=== PATIENT | female | born 1960 | race Caucasian/White ===

== ENCOUNTER 2016-09-25 10:25 | Outpatient (CLI) | payer OTHER | END 2016-09-25 10:26 | disposition home or self-care (01) | DX: E03.9 Hypothyroidism, unspecified (principal); Z98.84 Bariatric surgery status ==

== ENCOUNTER 2017-01-31 09:10 | Outpatient (CLI) | payer OTHER | END 2017-01-31 09:11 | disposition critical access hospital (66) | LOC: EMS 09:10 | PROVIDERS: ATTEND Surgery | DX: R07.9 Chest pain, unspecified (principal) | CPT/HCPCS: A0425; A0427 ==

== ENCOUNTER 2017-01-31 09:28 | Emergency (ER) | payer OTHER ==
--- NOTE | 2017-01-31 09:51 | ED Physician Documentation ---
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 No: General Weakness, Palpitations, Cough Similar symptoms before: No diagnosis (had similar less severe symptoms undulating for a few hours about 2-3 days ago, nonexertional and then went away. ) Recently seen: Not recently seen Review of Systems Constitutional: denies: Fever, Chills Nose: denies: Rhinorrhea / runny nose, Congestion Throat: denies: Sore throat Cardiac: denies: Palpitations, Pedal edema, Calf pain Respiratory: denies: Dyspnea, Cough GI: reports: Nausea. denies: Abdominal Pain, Vomiting, Diarrhea : denies: Dysuria, Frequency Skin: denies: Rash, Lesions Musculoskeletal: denies: Neck pain, Back pain Neurologic: denies: Focal weakness, Numbness, Near syncope Psychiatric: denies: Depressed, Anxiety Immunocompromised: denies: Immunocompromised PD PAST MEDICAL HISTORY - Past Medical History Cardiovascular: Hypertension (but is better after losing weight) Respiratory: None Neuro: None Endocrine/Autoimmune: None - Present Medications Home Medications: Ambulatory Orders Medication Instructions Recorded Confirmed Gabapentin 01/31/17 Levothyroxine [Synthroid] 112 mcg PO DAILY 01/31/17 01/31/17 Sertraline [Zoloft] 50 mg PO DAILY 01/31/17 01/31/17 - Allergies Allergies/Adverse Reactions: Allergies Allergy/AdvReac Type Severity Reaction Status Date / Time amoxicillin Allergy Hives Verified 01/31/17 09:42 - Living Situation Living Situation: reports: With spouse/s.o. Living Arrangement: reports: At home - Social History Does the pt smoke?: No Does the pt have substance abuse?: No - Family History Family history: reports: CAD (father has pacemaker and brother with irregular heart beats). denies: Sudden , Venous thromboembolism PD ED PE NORMAL - Vitals Vital signs reviewed: Yes - General General: Alert and oriented X 3, No acute distress, Well developed/nourished - HEENT HEENT: Moist mucous membranes, Pharynx benign - Neck Neck: Supple, no meningeal sign, No adenopathy, No JVD, No bruit - Cardiac Cardiac: RRR, No gallop, No rub, Other (2/6 murmur left chest without radiation to neck. PMI slightly lateral. ) - Respiratory Respiratory: Clear bilaterally, Other (very slight chestwall tenderness left chest, without really reproducing her symptoms. ) - Abdomen Abdomen: Soft, Non tender - Female Female : Deferred - Rectal Rectal: Deferred - Back Back: No CVA TTP - Derm Derm: Normal color - Extremities Extremities: No deformity, No tenderness to palpate, Normal ROM s pain, No edema , No calf tenderness / cord - Neuro Neuro: Alert and oriented X 3, No motor deficit, Normal speech - Psych Psych: Normal mood, Normal affect Results - Vitals Vitals: Vital Signs - 24 hr 01/31/17 01/31/17 01/31/17 09:34 09:51 10:51 Temperature 36.2 C L Heart Rate 73 52 L Respiratory 20 11 L Rate Blood Pressure 138/90 H 132/69 H Blood Pressure 138/90 H [Left] Blood Pressure 153/75 H [Right] O2 Saturation 100 100 01/31/17 01/31/17 01/31/17 11:09 12:06 12:13 Temperature Heart Rate 58 L 54 L 55 L Respiratory 16 10 L Rate Blood Pressure 131/73 H 125/66 125/66 Blood Pressure [Left] Blood Pressure [Right] O2 Saturation 96 99 99 Oxygen O2 Source Room air - EKG (time done) 09:41 Rate: Rate (enter#) (90) Rhythm: NSR [place]: Normal Intervals: Normal [place] QRS: Normal Ischemia: Normal ST segments. No: ST elevation c/w ischemia, ST depression Compare to prior EKG: Old EKG unavailable - Labs Labs: Laboratory Tests 01/31/17 01/31/17 01/31/17 10:30 10:30 10:30 WBC 6.4 RBC 4.45 Hgb 12.7 Hct 38.4 MCV 86.2 MCH 28.6 MCHC 33.1 RDW 13.3 Plt Count 229 MPV 7.6 L Neut # 4.5 Lymph # 1.2 L Mckean # 0.5 Eos # 0.2 Baso # 0.0 Absolute Nucleated RBC 0.00 Nucleated RBCs 0.0 Sodium 140 Potassium 3.9 Chloride 107 Carbon Dioxide 25 Anion Gap 8.0 BUN 10 Creatinine 0.6 Estimated GFR (MDRD) 103 Glucose 99 Calcium 9.0 Magnesium 2.0 Total Bilirubin 0.7 AST 25 ALT 13 Alkaline Phosphatase 40 L Troponin I 1.28 H* Total Protein 6.9 Albumin 3.7 Globulin 3.2 Albumin/Globulin Ratio 1.2 Lipase 30 01/31/17 11:55 WBC RBC Hgb Hct MCV MCH MCHC RDW Plt Count MPV Neut # Lymph # Mckean # Eos # Baso # Absolute Nucleated RBC Nucleated RBCs Sodium Potassium Chloride Carbon Dioxide Anion Gap BUN Creatinine Estimated GFR (MDRD) Glucose Calcium Magnesium Total Bilirubin AST ALT Alkaline Phosphatase Troponin I 2.44 H* Total Protein Albumin Globulin Albumin/Globulin Ratio Lipase PD MEDICAL DECISION MAKING - ED course Complexity details: reviewed results (Elevated troponin with non-ST ECG. ), re- evaluated patient (pain minimal initially, but did increase some here. Given NTG and Morphine, with some subsequent nausea. Repeat ECG without ST elevations still, but RBBB is resolved. Talked with Cardiology, Dr. Villasenor, who refers to Hospitalist. ), considered differential (concerning for acute ME, ACS, lung related. Will get ECG, CXR, troponin and basic labs. ), d/w patient, d/w transportation consultant ([facility], Cardiology. ) Departure - Departure Disposition: 02 Transfer Acute Care Hosp Clinical Impression: Chest pain Qualifiers: Chest pain type: precordial pain Qualified Code(s): R07.2 - Precordial pain Myocardial infarction Qualifiers: Myocardial infarction ST status: non-ST elevation myocardial infarction Qualified Code(s): I21.4 - Non-ST elevation (NSTEMI) myocardial infarction Condition: Stable Record reviewed to determine appropriate education?: Yes
[2017-01-31] MEDS ORDERED: MAG HYDROX/AL HYDROX/SIMETH 30 ML UDC PO STA (10:16)
[2017-01-31] MEDS ORDERED: MAGNESIUM HYDROXIDE 2,400 MG/30 ML UDC ONE (10:29)
[2017-01-31] MEDS ORDERED: NITROGLYCERIN SL 0.4 MG TABLET SL ONE (10:29)
[2017-01-31] MEDS: NITROGLYCERIN SL 0.4 MG TABLET SL STA ×2 (10:31→10:57)
[2017-01-31 10:37] LABS: BASOPHILS % (AUTO) 0.8 %; EOSINOPHILS # (AUTO) 0.2 10^3/uL (0.0-0.7); EOSINOPHILS % (AUTO) 2.5 %; HCT - HEMATOCRIT 38.4 % (37.0-47.0); HGB - HEMOGLOBIN 12.7 g/dL (12.0-16.0); LYMPHOCYTES # (AUTO) 1.2 10^3/uL (1.5-3.5); LYMPHOCYTES % (AUTO) 19.1 %; MEAN CORPUSCULAR HEMOGLOBIN 28.6 pg (27.0-31.0); MEAN CORPUSCULAR HGB CONC 33.1 g/dL (32.0-36.0); MEAN CORPUSCULAR VOLUME 86.2 fL (81.0-99.0); MEAN PLATELET VOLUME 7.6 fL (7.9-10.8); MONOCYTES # (AUTO) 0.5 10^3/uL (0.0-1.0); MONOCYTES % (AUTO) 7.6 %; NEUTROPHILS # (AUTO) 4.5 10^3/uL (1.5-6.6); RED BLOOD COUNT 4.45 10^6/uL (4.20-5.40); RED CELL DISTRIBUTION WIDTH 13.3 % (12.0-15.0); UNCORRECTED WHITE BLOOD COUNT 6.4 x10^3/uL; WHITE BLOOD COUNT 6.4 x10^3/uL (4.8-10.8)
[2017-01-31 10:50] LABS: ALBUMIN/GLOBULIN RATIO 1.2 (1.0-2.2); BILIRUBIN,TOTAL 0.7 mg/dL (0.2-1.0); CREATININE 0.6 mg/dL (0.4-1.0); POTASSIUM 3.9 mmol/L (3.5-5.0); TOTAL PROTEIN 6.9 g/dL (6.7-8.2)
[2017-01-31] MEDS ORDERED: MORPHINE 2 MG/ML SYRINGE IVP STA ×2 (11:11→12:13)
[2017-01-31] MEDS ORDERED: MORPHINE 2 MG/ML SYRINGE ONE ×2 (11:17→12:20)
--- NOTE | 2017-01-31 11:23 | XRAY Preliminary Report ---
Exam: XR Chest 2 View PA/LAT Impression: Atherosclerosis of the aorta. No evidence of a mass or infiltrate. [facility] SITE ID: [id number]
--- NOTE | 2017-01-31 11:25 | XRAY Report ---
EXAM: CHEST RADIOGRAPHY EXAM DATE: 01/31/2017 10:46 AM. CLINICAL HISTORY: Chest pain since 8:30. COMPARISON: None. TECHNIQUE: 2 views. FINDINGS: There is atherosclerosis of the aorta. The heart is enlarged. There is no pulmonary mass, infiltrate, pleural effusion or pneumothorax seen. Impression: Atherosclerosis of the aorta. No evidence of a mass or infiltrate. [facility] Referring Provider Line: [phone] SITE ID: [id number]
[2017-01-31] MEDS ORDERED: ENOXAPARIN 80 MG/0.8 ML SYRINGE SUBQ STA (11:45)
[2017-01-31] MEDS ORDERED: CLOPIDOGREL 300 MG TABLET PO STA (11:46)
[2017-01-31] MEDS ORDERED: CLOPIDOGREL 300 MG TABLET PO ONE (11:59)
[2017-01-31] MEDS ORDERED: ENOXAPARIN 80 MG/0.8 ML SYRINGE SUBQ ONE (11:59)
[2017-01-31] MEDS ORDERED: NITROGLYCERIN SL 0.4 MG TABLET SL STA (12:13)
[2017-01-31] MEDS ORDERED: ONDANSETRON 4 MG/2 ML VIAL IVP STA (12:24)
[2017-01-31] MEDS ORDERED: ACETAMINOPHEN 325 MG TABLET PO STA (12:24)
[2017-01-31] MEDS ORDERED: SODIUM CHLORIDE 0.9% 500 ML IV ONE (12:24)
[2017-01-31] MEDS ORDERED: ONDANSETRON 4 MG/2 ML VIAL ONE (12:31)
[2017-01-31] MEDS ORDERED: ACETAMINOPHEN 325 MG TABLET PO ONE (13:01)
[2017-01-31 14:05] VITALS: BP 112/61
== END 2017-01-31 14:09 | disposition short-term general hospital (02) ==
LOC: EDUNIT# → ED 09:28
DX: I21.4 Non-ST elevation (NSTEMI) myocardial infarction (principal); R07.9 Chest pain, unspecified; I45.10 Unspecified right bundle-branch block; R94.31 Abnormal electrocardiogram [ECG] [EKG]; I10 Essential (primary) hypertension
CPT/HCPCS: 36415; 71020; 80053; 83690; 83735; 84484; 85025; 93005; 96361; 96372; 96374; 96375; 96376; 99285; A9270; J1650

== ENCOUNTER 2017-01-31 14:12 | Outpatient (CLI) | payer OTHER | END 2017-01-31 14:13 | disposition short-term general hospital (02) | LOC: EMS 14:12 | PROVIDERS: ATTEND Surgery | DX: I21.3 ST elevation (STEMI) myocardial infarction of unspecified site (principal) | CPT/HCPCS: A0425; A0426 ==

== ENCOUNTER 2023-04-04 10:49 | Outpatient (CLI) | payer OTHER | END 2023-04-04 10:50 | disposition critical access hospital (66) | LOC: EMS 10:49 | DX: R42 Dizziness and giddiness (principal); R63.8 Other symptoms and signs concerning food and fluid intake; R00.1 Bradycardia, unspecified | CPT/HCPCS: A0425; A0427 ==

== ENCOUNTER 2023-04-04 11:08 | Emergency (ER) | payer OTHER ==
[2023-04-04 11:41] LABS: BASOPHILS # (AUTO) 0.1 10^3/uL (0.0-0.1); BASOPHILS % (AUTO) 0.9 %; EOSINOPHILS # (AUTO) 0.3 10^3/uL (0.0-0.7); EOSINOPHILS % (AUTO) 4.1 %; HCT - HEMATOCRIT 35.5 % (37.0-47.0); LYMPHOCYTES # (AUTO) 2.3 10^3/uL (1.5-3.5); LYMPHOCYTES % (AUTO) 35.3 %; MEAN CORPUSCULAR HEMOGLOBIN 26.8 pg (27.0-31.0); MEAN CORPUSCULAR VOLUME 86.4 fL (81.0-99.0); MONOCYTES # (AUTO) 0.5 10^3/uL (0.0-1.0); MONOCYTES % (AUTO) 8.2 %; NEUTROPHILS # (AUTO) 3.4 10^3/uL (1.5-6.6); NEUTROPHILS % (AUTO) 51.3 %; PLT - PLATELET COUNT 154 10^3/uL (130-450); RED BLOOD COUNT 4.11 10^6/uL (4.20-5.40); RED CELL DISTRIBUTION WIDTH 14.8 % (12.0-15.0); WHITE BLOOD COUNT 6.6 x10^3/uL (4.8-10.8)
[2023-04-04 11:49] LABS: ALBUMIN 3.8 g/dL (3.2-5.5); ALBUMIN/GLOBULIN RATIO 1.4 (1.0-2.2); ALKALINE PHOSPHATASE 41 IU/L (42-121); ALT ALANINE AMINOTRANSFERASE 11 IU/L (10-60); AST ASPARTATE AMINOTRANSFERASE 19 IU/L (10-42); BILIRUBIN,TOTAL 0.3 mg/dL (0.2-1.0); BUN - BLOOD UREA NITROGEN 13 mg/dL (6-20); CALCIUM 9.1 mg/dL (8.5-10.3); CARBON DIOXIDE - CO2 29 mmol/L (21-32); CHLORIDE 107 mmol/L (101-111); ETOH - ETHANOL < 10.0 mg/dL; GFR - MDRD 56 (>89); GLUCOSE 106 mg/dL (74-104); LIPASE 35 U/L (11-82); MAGNESIUM 1.6 mg/dL (1.7-2.3); POTASSIUM 3.6 mmol/L (3.5-4.5); SODIUM 141 mmol/L (135-145); TOTAL PROTEIN 6.5 g/dL (6.4-8.9)
--- NOTE | 2023-04-04 11:50 | ED Physician Documentation ---
History of Present Illness - Stated complaint Stated Complaint: DIZZINESS - Chief complaint Chief Complaint: Neuro - Additonal information Additional information: Patient 62-year-old female presenting to the emergency department chief compla int dizziness. Reports has had intermittent episodes of dizziness ongoing for the last several years. This morning while at work had an episode that was more severe than baseline. Denies any chest pain or shortness of breath associated with her symptoms. 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 Does report that she takes blood pressure medication including metoprolol each morning along with a thyroid supplement. No recent changes in her medications. States that she follows with automotive design drafter and had an echocardiogram done within the last year. She also endorses for multiple cardiac catheterizations in the past which have been negative. Review of Systems Constitutional: denies: Fever Eyes: denies: Loss of vision Ears: denies: Loss of hearing Nose: denies: Rhinorrhea / runny nose Throat: denies: Dental pain / toothache Cardiac: denies: Chest pain / pressure Respiratory: denies: Dyspnea GI: denies: Abdominal Pain PD PAST MEDICAL HISTORY - Past Medical History Cardiovascular: Hypertension Respiratory: None Endocrine/Autoimmune: None Psych: Depression - Past Surgical History Past Surgical History: Yes General: Cholecystectomy - Present Medications Home Medications: Ambulatory Orders Medication Instructions Recorded Confirmed Gabapentin 300 mg PO QPM 01/31/17 04/04/23 Levothyroxine [Synthroid] 112 mcg PO DAILY 01/31/17 04/04/23 Sertraline [Zoloft] 100 mg PO DAILY 01/31/17 04/04/23 Cetirizine [ZyrTEC] 10 mg PO DAILY 04/04/23 04/04/23 Metoprolol Succinate [Toprol Xl] 25 mg PO DAILY 04/04/23 04/04/23 Prochlorperazine [Compazine] 5 mg PO Q6H 04/04/23 04/04/23 Sumatriptan Succinate [Imitrex] 100 mg PO DAILY PRN 04/04/23 04/04/23 Zolpidem Tartrate [Ambien Cr] 12.5 mg PO QPM PRN 04/04/23 04/04/23 buPROPion [Wellbutrin Sr] 150 mg PO DAILY 04/04/23 04/04/23 - Allergies Allergies/Adverse Reactions: Allergies Allergy/AdvReac Type Severity Reaction Status Date / Time amoxicillin Allergy Hives Verified 04/04/23 11:36 erythromycin base AdvReac Unknown Verified 04/04/23 11:36 - Social History Does the pt smoke?: No Smoking Status: Never smoker Does the pt drink ETOH?: No Does the pt have substance abuse?: No - Immunizations Immunizations are current?: Yes PD ED PE NORMAL - Vitals Vital signs reviewed: Yes (Pulse 55) - General General: Alert and oriented X 3, No acute distress, Well developed/nourished - HEENT HEENT: Atraumatic, PERRL, EOMI, Ears normal, Moist mucous membranes, Pharynx benign - Neck Neck: Supple, no meningeal sign, No bony TTP, No adenopathy, Thyroid normal, No JVD - Cardiac Cardiac: RRR, No gallop, Strong equal pulses - Respiratory Respiratory: No respiratory distress, Clear bilaterally - Abdomen Abdomen: Normal bowel sounds, Non tender, Non distended - Female Female : Deferred - Rectal Rectal: Deferred - Back Back: No CVA TTP - Derm Derm: Normal color - Extremities Extremities: No deformity, No tenderness to palpate - Neuro Neuro: Alert and oriented X 3, loom changer 2-12 intact, No motor deficit, No sensory deficit, Normal speech Results - Vitals Vitals: Vital Signs - 24 hr 04/04/23 04/04/23 04/04/23 11:12 11:57 12:58 Temperature 36.5 C Heart Rate 51 L 51 L Heart Rate [ 47 L Sitting] Heart Rate [ 54 L Standing] Heart Rate [ 46 L Supine] Respiratory 18 18 Rate Blood Pressure 129/67 129/67 Blood Pressure 150/67 H [Sitting] Blood Pressure 158/72 H [Standing] Blood Pressure 144/63 H [Supine] O2 Saturation 98 100 Oxygen O2 Source Room air - EKG (time done) 1115 EKG releavant findings:: EKG personally interpreted by author of this note. Relevant findings are: Sinus rhythm with rate 54 bpm. Normal axis. [place] normal prolonged at 213 ms. QTc and QT intervals within normal limits. No ST segment elevations. Nonspecific ST abnormalities. Infrequent premature ventricular complexes noted. - Labs Labs: Laboratory Tests 04/04/23 04/04/23 04/04/23 11:31 11:31 11:31 WBC 6.6 RBC 4.11 L Hgb 11.0 L Hct 35.5 L MCV 86.4 MCH 26.8 L MCHC 31.0 L RDW 14.8 Plt Count 154 MPV 9.0 Neut # (Auto) 3.4 Lymph # (Auto) 2.3 [place] # (Auto) 0.5 Eos # (Auto) 0.3 Baso # (Auto) 0.1 Absolute Nucleated RBC 0.00 Nucleated RBC % 0.0 Sodium 141 Potassium 3.6 Chloride 107 Carbon Dioxide 29 Anion Gap 5.0 L BUN 13 Creatinine 1.0 Estimated GFR (MDRD) 56 L Glucose 106 H Calcium 9.1 Magnesium 1.6 L Total Bilirubin 0.3 AST 19 ALT 11 Alkaline Phosphatase 41 L Troponin I High Sens 7.5 Total Protein 6.5 Albumin 3.8 Globulin 2.7 Albumin/Globulin Ratio 1.4 Lipase 35 Ethyl Alcohol < 10.0 PD Medical Decision Making - ED course Complexity details: reviewed old records, reviewed results, re-evaluated patient, considered differential, d/w patient ED course: Patient 62-year-old female presenting to the emergency department with chief complaint dizziness. Endorse for multiple similar episodes in the past. Does have past medical significant for aortic valve replacement secondary to bicuspid aortic. Denies any chest pain or shortness of breath associated with her symptoms. Does report that she ordinarily has episodes similar to this area only in the morning and she does take her blood pressure medications in the morning including metoprolol. EKG is on above demonstrated sinus bradycardia without indications of acute cardiac ischemia or dysrhythmia. The remainder of her labs were all within normal limits or nonactionable. She had normal orthostatic vital signs in the emergency department. She passed an ambulatory trial. She was monitored continuously on telemetry for several hours with no recurrent or worsening symptoms. On reevaluation she reported feeling significantly better and denied any ongoing symptoms here in the emergency department. She did report that she has had an echocardiogram done within the last year That she reports was normal. I do believe it would benefit her to discontinue her beta-allyssa at this time as I am concerned that this could be contributing to her symptoms. I will have her follow-up with her primary care doctor as well as with her automotive design drafter. She is instructed to return to the emergency department immediately for any new or worsening symptoms. Departure - Departure Forms: PCP List
--- OUTSIDE RECORDS SUMMARY | 2023-04-04 12:36 | EXTERNAL MEDICAL SUMMARY RPT | Continuity of Care Document ---
Author Name Unknown Address [address] [place] [address] Phone Organization [facility] Address [address] [place] [address] Phone Care Team Providers Care Supervisor [employer] Name Role Phone aMlou Owusu Unavailable Unavailable Allergies and Intolerances date description facility reaction severity 2023-01-30 11:34:19 [facility] (no reactio n) Severe Results/Labs test date facility value unit notes Social History date description facility 2023-01-30 00:00 Never smoked tobacco ([facility] Vital Signs date measurement value units 2023-01-30 00:00 BMI 24.8 kg/m2 2023-01-30 00:00 BP_diastolic 84 mmHg 2023-01-30 00:00 BP_systolic 132 mmHg 2023-01-30 00:00 heart_rate 57 /min 2023-01-30 00:00 height_metric 167.64 cm 2023-01-30 00:00 height_standard 66 in 2023-01-30 00:00 o2_saturation 97 % 2023-01-30 00:00 weight_metric 69.85 kg 2023-01-30 00:00 weight_standard 153.99 lb
[2023-04-04 13:06] VITALS: BP 154/60; O2SAT 99
== END 2023-04-04 13:24 | disposition home or self-care (01) ==
LOC: EDUNIT# → ED 11:08
DX: R42 Dizziness and giddiness (principal); I10 Essential (primary) hypertension; Z79.899 Other long term (current) drug therapy
CPT/HCPCS: 36415; 80053; 80320; 83690; 83735; 84484; 85025; 93005; 99284